=== PATIENT | male | born 1965 | race African-American/Black ===

== ENCOUNTER 2022-04-21 17:05 | Emergency (ER) | payer OTHER ==
[2022-04-21 17:12] VITALS: BP 124/89; PULSE 90; TEMP 98.6; BMI 22.8
[2022-04-21] MEDS ORDERED: chlordiazePOXIDE HCL 25 MG CAPSULE PO ONE (22:39)
[2022-04-21] MEDS ORDERED: chlordiazePOXIDE HCL 25 MG CAPSULE ONE (23:32)
[2022-04-22 00:27] LABS: BASO % 1.2 % (0-2.0); EOS % 4.1 % (0-4.5); HEMATOCRIT 31.6 % (35.4-49); LYMPH % 40.4 % (8-40); MCH 29.5 pg (25.7-33.7); MCHC 34.8 g/dl (32.0-35.9); MEAN CELL VOLUME 84.6 fl (80-96); MEAN PLT VOLUME 8.4 fl (7.5-11.1); MONO % 8.8 % (3.8-10.2); NEUT % 45.5 % (42.8-82.8); PLATELET COUNT 218 10^3/uL (134-434); RBC 3.73 M/mm3 (4.00-5.60); RDW 14.9 % (11.9-15.9); WHITE BLOOD COUNT 3.4 K/mm3 (4.0-10.0)
[2022-04-22 00:47] LABS: CALCIUM 8.1 mg/dL (8.5-10.1)
[2022-04-22 00:48] LABS: ALBUMIN 2.9 g/dl (3.4-5.0); BLOOD UREA NITROGEN 18.2 mg/dL (7-18)
[2022-04-22 00:52] LABS: CREATININE 1.1 mg/dL (0.55-1.3)
[2022-04-22 00:53] LABS: BILIRUBIN,TOTAL 0.6 mg/dL (0.2-1); TOT PROT 5.9 g/dl (6.4-8.2)
[2022-04-22 00:56] LABS: N-TERMINAL BNP 96.1 pg/ml (5-125)
== END 2022-04-22 02:26 | disposition home or self-care (01) ==
LOC: JER 17:05
DX: F10.239 Alcohol dependence with withdrawal, unspecified (principal)
CPT/HCPCS: 36415; 80053; 83880; 85025; 93005; 93010; 99284-25

== ENCOUNTER 2022-04-22 02:53 | Inpatient (IN) | payer OTHER ==
[2022-04-22 03:04] VITALS: BMI 23.5
[2022-04-22] MEDS ORDERED: hydrOXYzine PAMOATE 25 MG CAPSULE (FP) PO PRN (03:19)
[2022-04-22] MEDS ORDERED: IBUPROFEN 600 MG TABLET (FP) PO PRN (03:19)
[2022-04-22] MEDS ORDERED: ONDANSETRON *ODT* 4 MG TABLET SL PRN (03:19)
[2022-04-22] MEDS ORDERED: chlordiazePOXIDE HCL 25 MG CAPSULE PO PRN (03:19)
[2022-04-22] MEDS ORDERED: BISMUTH SUBSALICYLATE 524 MG/30 ML PO PRN (03:19)
[2022-04-22] MEDS ORDERED: MAG HYDROX/AL HYDROX/SIMETH 30 ML UNIT-DOSE CUP PO PRN (03:19)
[2022-04-22] MEDS ORDERED: NICOTINE POLACRILEX 2 MG GUM BUC PRN (03:19)
[2022-04-22] MEDS ORDERED: IBUPROFEN 400 MG TABLET (FP) PO PRN (03:19)
[2022-04-22] MEDS ORDERED: METHOCARBAMOL 500 MG TABLET PO PRN (03:19)
[2022-04-22] MEDS ORDERED: MAGNESIUM CITRATE 300 ML BOTTLE PO PRN (03:19)
[2022-04-22] MEDS ORDERED: guaiFENesin 200 MG/10 ML 10 ML UNIT-DOSE CUPS PO PRN (03:19)
[2022-04-22] MEDS ORDERED: DICYCLOMINE HCL 10 MG CAPSULE PO PRN (03:19)
[2022-04-22] MEDS ORDERED: P-EPHED 60MG/TRIPROLIDI 2.5MG TABLET PO PRN (03:19)
[2022-04-22] MEDS ORDERED: ACETAMINOPHEN 325 MG TABLET (FP) PO PRN ×2 (03:19)
[2022-04-22] MEDS ORDERED: BENZOCAINE/MENTHOL (CHLORASEPTIC ) LOZENGE MM PRN (03:19)
[2022-04-22] MEDS ORDERED: MAGNESIUM HYDROX 2400MG/30ML ORAL SUSPENSION 30 ML CUP PO PRN (03:19)
[2022-04-22] MEDS ORDERED: LOPERAMIDE HCL 2 MG CAPSULE PO PRN (03:19)
[2022-04-22] MEDS: chlordiazePOXIDE HCL 25 MG CAPSULE PO SCH ×4 (04:28→22:31)
[2022-04-22] MEDS: PRENATAL VITAMINS W/ FOLIC ACID TABLET (FP) PO SCH (10:33)
[2022-04-22] MEDS: NICOTINE 21 MG/24 HOURS TOPICAL PATCH TD SCH (10:33)
[2022-04-22] MEDS ORDERED: HALOPERIDOL 5 MG TABLET PO SCH (22:00)
[2022-04-22] MEDS ORDERED: MELATONIN 5 MG TABLETS PO SCH (22:00)
[2022-04-22] MEDS ORDERED: BENZTROPINE MESYLATE 1 MG TABLET PO SCH (22:00)
[2022-04-22] MEDS ORDERED: HALOPERIDOL 1 MG TABLET PO SCH (22:00)
[2022-04-22] MEDS ORDERED: THIAMINE HCL 100 MG TABLET (FP) PO SCH (22:00)
[2022-04-23] MEDS: chlordiazePOXIDE HCL 25 MG CAPSULE PO SCH ×3 (06:48→17:00)
[2022-04-23] MEDS: NICOTINE 21 MG/24 HOURS TOPICAL PATCH TD SCH (10:15)
[2022-04-23] MEDS: PRENATAL VITAMINS W/ FOLIC ACID TABLET (FP) PO SCH (10:15)
[2022-04-23 10:51] LABS: HEMATOCRIT 34.5 % (35.4-49); HEMOGLOBIN 11.7 GM/dL (11.7-16.9); MCH 29.2 pg (25.7-33.7); MCHC 33.9 g/dl (32.0-35.9); MEAN CELL VOLUME 86.1 fl (80-96); MEAN PLT VOLUME 8.8 fl (7.5-11.1); PLATELET COUNT 217 10^3/uL (134-434); RDW 15.2 % (11.9-15.9); WHITE BLOOD COUNT 2.8 K/mm3 (4.0-10.0)
[2022-04-23 11:08] LABS: CALCIUM 8.2 mg/dL (8.5-10.1)
[2022-04-23 11:09] LABS: ALBUMIN 2.8 g/dl (3.4-5.0); BLOOD UREA NITROGEN 12.3 mg/dL (7-18)
[2022-04-23 11:12] LABS: CREATININE 0.8 mg/dL (0.55-1.3)
[2022-04-23 11:14] LABS: BILIRUBIN,TOTAL 0.4 mg/dL (0.2-1); TOT PROT 5.7 g/dl (6.4-8.2)
[2022-04-23 16:43] VITALS: BP 132/74; PULSE 77; TEMP 98
[2022-04-24] MEDS ORDERED: chlordiazePOXIDE HCL 10 MG CAPSULE PO PRN
[2022-04-24] MEDS ORDERED: chlordiazePOXIDE HCL 10 MG CAPSULE PO SCH (05:00)
[2022-04-25] MEDS ORDERED: chlordiazePOXIDE HCL 10 MG CAPSULE PO SCH (05:00)
[2022-04-26] MEDS ORDERED: chlordiazePOXIDE HCL 10 MG CAPSULE PO ONE (05:00)
== END 2022-04-23 19:25 | disposition left against medical advice (07) | DRG 894 ==
LOC: YASAS 02:53 → Y3N 03:49
PROVIDERS: ADMIT Allergy & Immunology; ATTEND Surgery
PROC: HZ2ZZZZ Detoxification Services for Substance Abuse Treatment (ICD-10-PCS; principal; 2022-04-22)
DX: F10.230 Alcohol dependence with withdrawal, uncomplicated (principal); F14.20 Cocaine dependence, uncomplicated; F19.282 Other psychoactive substance dependence with psychoactive substance-induced sleep disorder; F17.210 Nicotine dependence, cigarettes, uncomplicated; F20.3 Undifferentiated schizophrenia; F19.24 Other psychoactive substance dependence with psychoactive substance-induced mood disorder; D72.819 Decreased white blood cell count, unspecified; Z91.19 Patient's noncompliance with other medical treatment and regimen; Z88.0 Allergy status to penicillin; Z88.8 Allergy status to other drugs, medicaments and biological substances; Z56.0 Unemployment, unspecified
CPT/HCPCS: 36415; 80053; 82962; 85027; 86780; C9803-CS; U0003; U0005